=== PATIENT | female | born 1960 | race Caucasian/White ===

== ENCOUNTER 2020-03-28 16:51 | Inpatient (IN) | payer BC, MEDICAID ==
[~2020-03-28] VITALS: Ht 170.2 cm; Wt 113.2 kg
--- NOTE | 2020-03-28 17:00 | NUR ---
PT BIB EMS FROM [place] FOR THROAT ABSCESS AND SORE THROAT FOR ABOUT ONE WEEK. +COUGH. PT IS A COVID R/O. PT RECEIVED CLINDAMYCIN AT 1119 TODAY AND REPORTED ENOUGH RELIEF TO BE ABLE TO EAT.
[2020-03-28] MEDS ORDERED: PLEASE ENTER ALLERGIES MC SCH (18:00)
[2020-03-28 18:02] LABS: BASOPHILS # (AUTO) 0.01 x10^3/uL (0-0.1); BASOPHILS % (AUTO) 0 % (0-1); EOSINOPHILS # (AUTO) 0.02 x10^3/uL (0-0.4); EOSINOPHILS % (AUTO) 0 % (1-7); LYMPHOCYTES # (AUTO) 1.01 x10^3/uL (1-3.4); LYMPHOCYTES % (AUTO) 6 % (22-44); MD NO; MEAN CORPUSCULAR HEMOGLOBIN 29.2 pg (27.0-34.8); MEAN CORPUSCULAR VOLUME 88.6 fL (80-100); MEAN PLATELET VOLUME 7.7 fL (7.4-10.4); MONOCYTES # (AUTO) 1.19 x10^3/uL (0.2-0.8); MONOCYTES % (AUTO) 7 % (2-9); NEUTROPHILS # (AUTO) 15.44 x10^3/uL (1.8-6.8); NEUTROPHILS % (AUTO) 87 % (42-75); PLATELET COUNT 390 x10^3/uL (130-400); RED BLOOD COUNT 4.13 x10^6/uL (3.82-5.3); RED CELL DISTRIBUTION WIDTH 13.1 % (9.6-15.2)
--- NOTE | 2020-03-28 18:05 | NUR ---
REPORT TO ANGELI HUANG FOR LUNCH BREAK.
[2020-03-28 18:12] LABS: ALBUMIN 2.8 g/dL (3.4-5.0); ANION GAP 5 mmol/L (5-15); CALCIUM 9.3 mg/dL (8.5-10.1); CHLORIDE 104 mmol/L (98-107); CREATININE 0.54 mg/dL (0.55-1.02)
[2020-03-28] MEDS ORDERED: NYST15CR2 TP (18:24)
[2020-03-28] MEDS ORDERED: ALBU8.5H8 INH (18:24)
[2020-03-28] MEDS ORDERED: LEVO300T4 PO (18:24)
[2020-03-28] MEDS ORDERED: FLUT12HF2 INH (18:24)
[2020-03-28] MEDS ORDERED: LISI-170 PO (18:24)
[2020-03-28] MEDS ORDERED: FLUO40CA2 PO (18:24)
[2020-03-28] MEDS ORDERED: BISA10SU4 PR (18:24)
[2020-03-28] MEDS ORDERED: MONT10TA11 PO (18:24)
[2020-03-28] MEDS ORDERED: PSEU120T10 PO (18:24)
[2020-03-28] MEDS ORDERED: HYDR25TA6 PO (18:24)
[2020-03-28] MEDS ORDERED: ASPI1TAB31 PO (18:24)
[2020-03-28] MEDS ORDERED: FLUC150T2 PO (18:24)
[2020-03-28] MEDS ORDERED: PHEN15CA2 PO (18:24)
[2020-03-28] MEDS ORDERED: OMEP40CA42 PO (18:24)
[2020-03-28] MEDS ORDERED: LORA10TA62 PO (18:24)
[2020-03-28] MEDS ORDERED: METH4TAB7 PO (18:24)
[2020-03-28] MEDS ORDERED: LIDO700A20 TD (18:24)
[2020-03-28] MEDS ORDERED: FLUT9.9S NS (18:24)
[2020-03-28] MEDS ORDERED: SODIUM CHLORIDE FLUSH 10ML SYR IVF ONE (18:30)
--- NOTE | 2020-03-28 18:45 | NUR ---
PT GIVEN FOOD. OK TO EAT PER DR. CALHOUN.
[2020-03-28] MEDS ORDERED: SODIUM CHLORIDE FLUSH 10ML SYR IVF PRN ×2 (19:30→20:00)
--- NOTE | 2020-03-28 20:10 | NUR ---
DR. BAPTISTE AT BEDSIDE. WAITING FOR ADMIT ORDERS.
[2020-03-28] MEDS ORDERED: PROMETHAZINE 25 MG/ML, 1ML IM PRN (20:30)
[2020-03-28] MEDS ORDERED: hydrALAzine 20 MG/ML, 1ML IVPush PRN (20:30)
[2020-03-28] MEDS ORDERED: morphine SULFATE 10 MG/ML, 1ML IVPush PRN (20:30)
--- NOTE | 2020-03-28 20:35 | NUR ---
REPORT TO FLOOR. PT AWARE OF BED ASSIGNEMNET. PT RESTING IN BED IN [place] WATCHING TV AND DRINKING A COLD SPRITE.
[2020-03-28 20:58] VITALS: BP 126/83
[2020-03-28] MEDS: ACETAMINOPHEN 325 MG TABLET PO PRN (21:22)
[2020-03-28] MEDS: KETOROLAC 30 MG/1 ML IV PRN ×2 (21:23→22:58)
[2020-03-28] MEDS: DEXAMETHASONE 4 MG/ML, 1ML IVPush SCH ×2 (21:23→22:58)
[2020-03-28] MEDS: LACTATED RINGERS 1,000 ML IV SCH ×2 (21:24→22:58)
[2020-03-28] MEDS: CLINDAMYCIN PMX 600MG/50ML 50 ML IV SCH (22:58)
[2020-03-29] MEDS ORDERED: OMEPRAZOLE 20 MG CAPSULE.DR PO SCH ×2 (01:00→21:00)
[2020-03-29] MEDS ORDERED: OMEPRAZOLE 20 MG CAPSULE.DR ONE (01:01)
[2020-03-29 01:08] VITALS: BP 128/85
[2020-03-29] MEDS: CLINDAMYCIN PMX 600MG/50ML 50 ML IV SCH (05:56)
[2020-03-29] MEDS: DEXAMETHASONE 4 MG/ML, 1ML IVPush SCH ×3 (05:57→21:35)
[2020-03-29] MEDS: LEVOTHYROXINE 150 MCG TABLET PO SCH ×3 (06:00→23:32)
[2020-03-29 06:03] LABS: BASOPHILS # (AUTO) 0.01 x10^3/uL (0-0.1); BASOPHILS % (AUTO) 0 % (0-1); EOSINOPHILS # (AUTO) 0.01 x10^3/uL (0-0.4); EOSINOPHILS % (AUTO) 0 % (1-7); LYMPHOCYTES # (AUTO) 1.08 x10^3/uL (1-3.4); LYMPHOCYTES % (AUTO) 7 % (22-44); MD NO; MEAN CORPUSCULAR HEMOGLOBIN 29.5 pg (27.0-34.8); MEAN CORPUSCULAR VOLUME 89.2 fL (80-100); MEAN PLATELET VOLUME 7.9 fL (7.4-10.4); MONOCYTES # (AUTO) 0.63 x10^3/uL (0.2-0.8); MONOCYTES % (AUTO) 4 % (2-9); NEUTROPHILS # (AUTO) 14.85 x10^3/uL (1.8-6.8); NEUTROPHILS % (AUTO) 90 % (42-75); PLATELET COUNT 389 x10^3/uL (130-400); RED BLOOD COUNT 4.16 x10^6/uL (3.82-5.3); RED CELL DISTRIBUTION WIDTH 13.4 % (9.6-15.2)
[2020-03-29] MEDS: ONDANSETRON 2MG/ML, 2ML IVPush PRN (06:04)
[2020-03-29 06:14] LABS: CHLORIDE 106 mmol/L (98-107)
[2020-03-29 06:20] LABS: ANION GAP 5 mmol/L (5-15); CALCIUM 9.3 mg/dL (8.5-10.1); CREATININE 0.62 mg/dL (0.55-1.02)
[2020-03-29 08:03] VITALS: BP 125/73
[2020-03-29] MEDS: FLUOXETINE HCL 20 MG CAPSULE PO SCH ×2 (09:00→19:49)
[2020-03-29] MEDS ORDERED: ALBUTEROL HFA 90 MCG/SPRAY INH SCH (09:00)
[2020-03-29] MEDS: OMEPRAZOLE 20 MG CAPSULE.DR PO SCH ×2 (09:00→19:49)
[2020-03-29] MEDS: FLUTICASONE/VILANTEROL 200-25MCG/INH INH SCH (10:12)
[2020-03-29] MEDS: AMPICILLIN/SULBACTAM 3 GM in SODIUM CHLORIDE 0.9% 100 ML IV SCH ×3 (10:12→21:35)
[2020-03-29] MEDS ORDERED: LEVO300T2 PO (11:26)
[2020-03-29] MEDS ORDERED: LISI1TAB20 PO (11:26)
[2020-03-29] MEDS ORDERED: FLUTICASONE NASAL SPRAY 16GM NAS PRN (12:30)
[2020-03-29] MEDS ORDERED: D5%-0.45NACL+KCL 20MEQ 1,000 ML IV SCH (12:30)
[2020-03-29 13:53] VITALS: BP 127/77
[2020-03-29] MEDS: LISINOPRIL 20 MG TABLET PO SCH (14:20)
[2020-03-29] MEDS ORDERED: FLUOXETINE HCL 20 MG CAPSULE ONE (14:33)
[2020-03-29] MEDS ORDERED: LIDODERM 5% PATCH TD ONE (19:43)
[2020-03-29] MEDS: KETOROLAC 30 MG/1 ML IV PRN (19:48)
[2020-03-29] MEDS: LIDODERM 5% PATCH TD SCH (19:49)
[2020-03-29 20:01] VITALS: BP 131/76
[2020-03-29] MEDS ORDERED: LACTATED RINGERS 1,000 ML IV SCH (20:30)
[2020-03-29] MEDS ORDERED: FLUOXETINE HCL 20 MG CAPSULE PO SCH (21:00)
[2020-03-30 01:09] VITALS: BP 138/66
[2020-03-30] MEDS: AMPICILLIN/SULBACTAM 3 GM in SODIUM CHLORIDE 0.9% 100 ML IV SCH ×4 (03:36→23:01)
[2020-03-30] MEDS ORDERED: LEVOTHYROXINE 150 MCG TABLET PO SCH (06:00)
[2020-03-30 07:13] VITALS: BP 142/88
[2020-03-30 07:18] LABS: ANION GAP 4 mmol/L (5-15); CALCIUM 8.8 mg/dL (8.5-10.1); CHLORIDE 107 mmol/L (98-107); CREATININE 0.53 mg/dL (0.55-1.02)
[2020-03-30 07:23] LABS: MEAN CORPUSCULAR HEMOGLOBIN 29.3 pg (27.0-34.8); MEAN CORPUSCULAR HGB CONC 33.1 g/dL (32.4-35.8); MEAN CORPUSCULAR VOLUME 88.6 fL (80-100); MEAN PLATELET VOLUME 7.9 fL (7.4-10.4); PLATELET COUNT 404 x10^3/uL (130-400); RED BLOOD COUNT 3.89 x10^6/uL (3.82-5.3); RED CELL DISTRIBUTION WIDTH 13.3 % (9.6-15.2)
[2020-03-30 08:48] LABS: MD YES
[2020-03-30] MEDS: FLUTICASONE/VILANTEROL 200-25MCG/INH INH SCH (08:51)
[2020-03-30] MEDS: OMEPRAZOLE 20 MG CAPSULE.DR PO SCH ×2 (08:52→20:37)
[2020-03-30] MEDS: FLUOXETINE HCL 20 MG CAPSULE PO SCH ×2 (08:52→20:38)
[2020-03-30] MEDS: HYDROCHLOROTHIAZIDE 25 MG TABLET PO SCH (08:52)
[2020-03-30] MEDS: DEXAMETHASONE 4 MG/ML, 1ML IVPush SCH ×2 (08:52→20:38)
[2020-03-30] MEDS: LISINOPRIL 20 MG TABLET PO SCH (08:52)
[2020-03-30 08:53] LABS: BAND#(MANUAL) 0.37 x10^3/uL; BANDS%(MANUAL) 2 % (0-7); LYMPH#(MANUAL) 3.16 x10^3/uL (1-3.4); LYMPHS% (MANUAL) 17 % (22-44); METAMYELOCYTES# (MANUAL) 0.19 x10^3/uL (0-0); METAMYELOCYTES% (MANUAL) 1 % (0-1); MONOS#(MANUAL) 0.93 x10^3/uL (0.3-2.7); MONOS% (MANUAL) 5 % (2-9); MYELOCYTES# (MANUAL) 0.37 x10^3/uL (0-0); MYELOCYTES% (MANUAL) 2 % (0-0); SEG#(MANUAL) 13.58 x10^3/uL (1.8-6.8); SEGS% (MANUAL) 73 % (42-75)
[2020-03-30] MEDS: ONDANSETRON 2MG/ML, 2ML IVPush PRN ×2 (08:53→20:38)
[2020-03-30 08:55] LABS: <PLATELET ESTIMATE> INCREASED; <PLT MORPHOLOGY> NORMAL PLT MORPH; <RBC MORPHOLOGY> NORMAL
[2020-03-30] MEDS ORDERED: TEMPLATE NON-FORMULARY MED. (Lisinopril/Hydrochlorothiazide** (Lisinopril-Hctz 20-25 Mg Ta PO SCH (09:00)
[2020-03-30] MEDS: LIDODERM REMOVE PATCH NOTE XX SCH (09:00)
[2020-03-30] MEDS ORDERED: LISINOPRIL 20 MG TABLET PO SCH (09:00)
[2020-03-30] MEDS ORDERED: LACTULOSE 10 GM/15 ML UDC PO PRN (11:30)
[2020-03-30 12:22] VITALS: BP 135/88
[2020-03-30 18:53] VITALS: BP 144/85
[2020-03-30] MEDS: LIDODERM 5% PATCH TD SCH (20:38)
[2020-03-30] MEDS: LEVOTHYROXINE 150 MCG TABLET PO SCH (22:52)
[2020-03-31 00:59] VITALS: BP 147/87
[2020-03-31] MEDS: AMPICILLIN/SULBACTAM 3 GM in SODIUM CHLORIDE 0.9% 100 ML IV SCH ×2 (04:58→11:35)
[2020-03-31] MEDS: ALBUTEROL HFA 90 MCG/SPRAY INH PRN ×2 (06:31→09:42)
[2020-03-31 06:35] VITALS: BP 155/96
[2020-03-31] MEDS: LIDODERM REMOVE PATCH NOTE XX SCH (09:00)
[2020-03-31] MEDS ORDERED: DEXAMETHASONE 4 MG/ML, 1ML IVPush SCH (09:00)
[2020-03-31] MEDS: HYDROCHLOROTHIAZIDE 25 MG TABLET PO SCH (09:40)
[2020-03-31] MEDS: OMEPRAZOLE 20 MG CAPSULE.DR PO SCH (09:41)
[2020-03-31] MEDS: LISINOPRIL 20 MG TABLET PO SCH (09:41)
[2020-03-31] MEDS: FLUOXETINE HCL 20 MG CAPSULE PO SCH (09:41)
[2020-03-31] MEDS: FLUTICASONE/VILANTEROL 200-25MCG/INH INH SCH (09:42)
[2020-03-31] MEDS ORDERED: METH4TAB2 PO (11:11)
[2020-03-31] MEDS ORDERED: FLUC200T4 PO (11:11)
[2020-03-31] MEDS ORDERED: LACT1CAP35 PO (11:11)
[2020-03-31] MEDS ORDERED: AMOX1TAB64 PO (11:11)
[2020-03-31 12:07] VITALS: BP 146/98
[2020-03-31] MEDS: ACETAMINOPHEN 325 MG TABLET PO PRN (12:16)
== END 2020-03-31 15:00 | disposition home or self-care (01) | DRG 871 ==
LOC: ED 19:33 → EDIP 20:45 → 4EST 20:53
PROVIDERS: ADMIT Family Medicine; ATTEND Hospitalist
DX: A41.9 Sepsis, unspecified organism (principal); E43 Unspecified severe protein-calorie malnutrition; K68.9 Other disorders of retroperitoneum; J44.1 Chronic obstructive pulmonary disease with (acute) exacerbation; J02.0 Streptococcal pharyngitis; E03.9 Hypothyroidism, unspecified; F17.210 Nicotine dependence, cigarettes, uncomplicated; E66.9 Obesity, unspecified; F32.9 Major depressive disorder, single episode, unspecified; L40.9 Psoriasis, unspecified; K21.9 Gastro-esophageal reflux disease without esophagitis; Z80.0 Family history of malignant neoplasm of digestive organs; Z68.39 Body mass index [BMI] 39.0-39.9, adult; I25.2 Old myocardial infarction; Z82.5 Family history of asthma and other chronic lower respiratory diseases; Z83.3 Family history of diabetes mellitus; Z85.3 Personal history of malignant neoplasm of breast; Z88.2 Allergy status to sulfonamides
CPT/HCPCS: 36415; 80048; 82040; 83605; 85025; 87040; G0378; J0295; J1100; J1885; J2405; J2550; J3480; J7120